=== PATIENT | male | born 2000 | race Caucasian/White ===

== ENCOUNTER 2019-12-25 22:05 | Emergency (ER) | payer OTHER ==
[2019-12-25] MEDS ORDERED: predniSONE 20 MG Tab PO ONE (23:48)
--- NOTE | 2019-12-25 23:52 | EDM.PDOC ---
ED HPI GENERAL MEDICAL PROBLEM - General Chief Complaint: Skin Complaint Stated Complaint: STUNG BY HORNET LOWER BACK Time Seen by Provider: 12/25/19 22:54 Source of Information: Reports: Patient History Limitations: Reports: No Limitations - History of Present Illness INITIAL COMMENTS - FREE TEXT/NARRATIVE: 19-year-old male with no past medical history presenting with a insect sting. Patient states that 2 days ago, he was stung on the left flank by a hornet. Since then, he has had a large area of erythema, tenderness, and itching and is concerned about possible expansion of the localized sting reaction. Denies any fever, chills, nausea, vomiting, throat swelling, tongue or facial swelling, wheezing, shortness of breath, or any other symptoms. Intermittently taking B enadryl prior to arrival. Past medical history: Reviewed, no additional pertinent history. Surgical history: Reviewed in system, no additional pertinent history. Social history: Reviewed in system, no additional pertinent history. Family history: Reviewed in system, no additional pertinent history. PHYSICAL EXAM Vital signs reviewed. Nursing notes reviewed. Constitutional: Awake, alert, non-distressed. Head: Normocephalic, atraumatic. Eyes: EOMI, conjunctiva normal, no discharge, no scleral icterus. Ears, Nose, Throat: External ears and nose normal, moist oral mucosa. Cardiovascular: 2+ radial pulse, capillary refill less than 2 seconds. Pulmonary: normal work of breathing, no accessory muscle use. Abdomen/GI: Soft, nontender, nondistended, no guarding or rigidity, no masses. Musculoskeletal: No deformities. Integumentary: Appropriate color for ethnicity, warm, dry, no pallor or jaundice, no rash. Left flank has a large area of erythema and central pallor which the patient identifies as the hornet sting site. Similar area noted over the left forearm. Neurologic: Alert, answering questions appropriately, normal speech, no facial droop, moving all extremities well. Psychiatric: Appropriate mood and affect, normal thought process. - Related Data Allergies Allergy/AdvReac Type Severity Reaction Status Date / Time No Known Allergies Allergy Verified 12/25/19 23:01 Home Meds: Home Meds predniSONE [Prednisone] 60 mg PO DAILY 4 Days #12 tablet 12/25/19 [Rx] Past Medical History - Past Health History Medical/Surgical History: Denies Medical/Surgical History Respiratory History: Reports: Other (See Below) Other Respiratory History: covid positve on 12/08/19 - Past Surgical History Respiratory Surgical History: Reports: None Social & Family History - Family History Family Medical History: Noncontributory - Tobacco Use Smoking Status *Q: Never Smoker Second Hand Smoke Exposure: No - Caffeine Use Caffeine Use: Reports: None - Recreational Drug Use Recreational Drug Use: No ED ROS GENERAL - Review of Systems Review Of Systems: See Below ED EXAM, SKIN/RASH Exam: See Below Course - Vital Signs Text/Narrative:: 19-year-old male with a localized reaction to an insect sting. No evidence of anaphylaxis. No evidence of cellulitis. We discussed the risks versus benefits of oral prednisone and the patient wants to be prescribed the steroid. Given a single dose here. We discussed treatment [id number] Zyrtec or Claritin and Benadryl as needed. No evidence of infection at this point. Stable to discharge home. Plan: Patient is stable to discharge home with outpatient primary care clinic follow-up. Strict emergency department return precautions were provided, mohamud grande indicated understanding. All questions were answered prior to departure. Discharged in good condition. Last Recorded V/S: Last Vital Signs Temp 36.8 C 12/26/19 00:07 Pulse 73 12/25/19 22:50 Resp 17 12/25/19 22:50 BP 152/86 H 12/25/19 22:50 Pulse Ox 97 12/25/19 22:50 - Orders/Labs/Meds Meds: Medications Discontinued Medications Generic Name Dose Route Start Last Admin Trade Name Mani PRN Reason Stop Dose Admin Prednisone 60 mg 12/25/19 23:48 12/26/19 00:06 Prednisone PO 12/25/19 23:49 60 mg ONETIME ONE Administration Departure - Departure Time of Disposition: 23:50 Disposition: Home, Self-Care 01 Condition: Good Clinical Impression: Insect sting Qualifiers: Encounter type: initial encounter Injury intent: undetermined intent Qualified Code(s): T63.484A - Toxic effect of venom of other arthropod, undetermined, initial encounter - Discharge Information *PRESCRIPTION DRUG MONITORING PROGRAM REVIEWED*: Not Applicable *COPY OF PRESCRIPTION DRUG MONITORING REPORT IN PATIENT MIMA: Not Applicable Prescriptions: predniSONE [Prednisone] 60 mg PO DAILY 4 Days #12 tablet Instructions: Insect Bite, Adult, [id number] Referrals: [facility] - Family Practice [Provider Group] - 1 Week (For follow-up as needed.) Forms: ED Department Discharge Additional Instructions: You were seen in the emergency department for insect stings. These should improve with time. We are going to prescribe you a short course of oral steroids called prednisone. He will be given the first dose here and can take the next 4 days at home. I recommend [id number] Zyrtec or Claritin once daily in the morning. He can also take [id number]-oriharn Benadryl every 6 hours as needed for persistent itching or swelling. Follow-up with the family medicine clinic in the next 1 to 2 weeks if your symptoms do not improve. Please return the emergency department immediately if your symptoms worsen or if you feel worse. Thank you for choosing the [facility] emergency department in [place] for your medical needs today. It was a pleasure caring for you. The following information is given to patients seen in the emergency department who are being discharged. This information is to outline your options for fo llow-up care. We provide all patients seen in our emergency department with a follow-up referral. The need for follow-up, as well as the timing and circumstances, are variable depending upon the specifics of your emergency department visit. If you don't have a primary care physician on staff, we will provide you with a referral. We always advise you to contact your personal physician following an emergency department visit to inform them of the circumstance of the visit and for follow-up with them and/or the need for any referrals to a consulting specialist. The emergency department will also refer you to a specialist when appropriate. This referral assures that you have the opportunity for follow-up care with a specialist. All of these measure are taken in an effort to provide you with optimal care, which includes your follow-up. Under all circumstances we always encourage you to contact your private physician who remains a resource for coordinating your care. When calling for follow-up care, please make the office aware that this follow-up is from your recent emergency room visit. If for any reason you are refused follow-up, please contact the [facility] Emergency Department at and asked to speak to the emergency department charge nurse. If you do not have a primary care physician that is caring for you, you can contact these clinics below to set up an appointment to establish care: [facility] - Primary Care [address] [place] [id number] [facility] [address] [place] [id number] Sepsis Event Note (ED) - Evaluation Sepsis Screening Result: No Definite Risk - Focused Exam Vital Signs: Vital Signs Temp Pulse Resp BP Pulse Ox 12/26/19 00:07 36.8 C 12/25/19 22:50 36.6 C 73 17 152/86 H 97
== END 2019-12-26 00:09 | disposition home or self-care (01) ==
LOC: MW.ED 22:05
DX: T63.451A Toxic effect of venom of hornets, accidental (unintentional), initial encounter (principal); U07.1 COVID-19
CPT/HCPCS: 99282; A9270

== ENCOUNTER 2020-09-22 05:00 | Emergency (ER) | payer OTHER ==
--- NOTE | 2020-09-22 05:03 | EDM.PDOC ---
ED HPI GENERAL MEDICAL PROBLEM - General Stated Complaint: WHEEZING, COUGHING Time Seen by Provider: 09/22/20 05:02 Source of Information: Reports: Patient History Limitations: Reports: No Limitations - History of Present Illness INITIAL COMMENTS - FREE TEXT/NARRATIVE: 19-year-old male no past medical history presents for wheezing, cough, chest tightness worsening over the last week. Patient does not have a history of asthma or reactive airway disease that he is aware of. He is a non-smoker. 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 He has been trying Claritin and Flonase which initially is providing some relief but does not seem to be working well anymore. This morning he had an intense fit of coughing that made him feel like he was about to pass out. Patient had COVID-19 roughly 5 months ago. He still has a sense of taste and smell. chest area Pain Score (Numeric/FACES): 4 - Related Data Allergies Allergy/AdvReac Type Severity Reaction Status Date / Time No Known Allergies Allergy Verified 09/22/20 05:10 Home Meds: Home Meds Albuterol Sulfate [Proair Hfa] 8.5 gm IH Q4H PRN #1 inhaler 09/22/20 [Rx] predniSONE 40 mg PO DAILY 4 Days #8 tab 09/22/20 [Rx] Past Medical History - Past Health History Medical/Surgical History: Denies Medical/Surgical History Respiratory History: Reports: Other (See Below) Other Respiratory History: covid positve on 12/08/19 - Past Surgical History Respiratory Surgical History: Reports: None Social & Family History - Family History Family Medical History: No Pertinent Family History - Caffeine Use Caffeine Use: Reports: None ED ROS GENERAL - Review of Systems Review Of Systems: Comprehensive ROS is negative, except as noted in HPI. ED EXAM, GENERAL - Physical Exam Exam: See Below Exam Limited By: No Limitations General Appearance: Alert, WD/WN, No Apparent Distress Nose: Normal Inspection Throat/Mouth: Normal Inspection, Normal Oropharynx, Normal Voice, No Airway Compromise Head: Atraumatic, Normocephalic Neck: Normal Inspection Respiratory/Chest: No Respiratory Distress, Wheezing Cardiovascular: Normal Peripheral Pulses, Regular Rate, Rhythm Extremities: Normal Inspection Neurological: Alert, Normal Cognition, Normal Gait Psychiatric: Normal Affect, Normal Mood Skin Exam: Warm, Dry, Intact, Normal Color #1 Interpretation EKG Date: 09/22/20 Time: 05:03 Rhythm: NSR Rate (Beats/Min): 74 [place]: Normal P-Wave: Present QRS: Normal ST-T: Normal QT: Normal NC/PQ Interval: 164 Comparison: NA - No Prior EKG EKG Interpretation Comments: normal EKG Course - Vital Signs Last Recorded V/S: Last Vital Signs Temp 97 F 09/22/20 05:00 Pulse 79 09/22/20 05:00 Resp 24 H 09/22/20 05:00 BP 139/93 H 09/22/20 05:00 Pulse Ox 95 09/22/20 05:00 - Orders/Labs/Meds Orders: Active Orders 24 hr Category Date Time Status RT Aerosol Therapy [RC] ASDIRECTED Care 09/22/20 05:13 Active Chest 1V Frontal [CR] Stat Exams 09/22/20 05:13 Taken Meds: Medications Discontinued Medications Generic Name Dose Route Start Last Admin Trade Name Freq PRN Reason Stop Dose Admin Albuterol/Ipratropium 3 ml 09/22/20 05:13 09/22/20 05:15 Albuterol/Ipratropium 3.0-0.5 Mg/3 Ml Neb Soln NEB 09/22/20 05:14 3 ml ONETIME ONE Administration Prednisone 40 mg 09/22/20 05:13 09/22/20 05:28 Prednisone 20 Mg Tab PO 09/22/20 05:14 40 mg STAT STA Administration - Re-Assessments/Exams Free Text/Narrative Re-Assessment/Exam: 09/22/20 05:16 Patient presents with wheezing and on physical exam has wheezing consistent with reactive airway disease. No history of asthma. Will get chest x-ray. Will give DuoNeb and prednisone now. 09/22/20 06:02 CXR unremarkable; will d/c with albuterol inhaler and prednisone. Departure - Departure Time of Disposition: 06:03 Disposition: Home, Self-Care 01 Condition: Good Clinical Impression: Reactive airway disease - Discharge Information Prescriptions: predniSONE 40 mg PO DAILY 4 Days #8 tab Instructions: Asthma, Adult Additional Instructions: Your chest x-ray does not show any sign of pneumonia. You had significant wheezing on exam. You were given a breathing treatment and a steroid in the emergency department. You were given a prescription for an inhaler as well as steroids for the next 4 days. Start the steroids tomorrow. The following information is given to patients seen in the emergency department who are being discharged to home. This information is to outline your options for follow-up care. We provide all patients seen in our emergency department with a follow-up referral. The need for follow-up, as well as the timing and circumstances, are variable depending upon the specifics of your emergency department visit. If you don't have a primary care physician on staff, we will provide you with a referral. We always advise you to contact your personal physician following an emergency department visit to inform them of the circumstance of the visit and for follow-up with them and/or the need for any referrals to a consulting specialist. The emergency department will also refer you to a specialist when appropriate. This referral assures that you have the opportunity for follow-up care with a specialist. All of these measure are taken in an effort to provide you with optimal care, which includes your follow-up. Under all circumstances we always encourage you to contact your private physician who remains a resource for coordinating your care. When calling for follow-up care, please make the office aware that this follow-up is from your recent emergency room visit. If for any reason you are refused follow-up, please contact the [facility] Emergency Department at and asked to speak to the emergency department charge nurse. Please follow up with your primary care physician. If you do not have a primary care physician, see below: [facility] [address] [place] [id number] [address] [facility] [address] [place] [address] [facility] [address] [place] [id number] Sepsis Event Note (ED) - Focused Exam Vital Signs: Vital Signs Temp Pulse Resp BP Pulse Ox 09/22/20 05:00 97 F 79 24 H 139/93 H 95 - My Orders Last 24 Hours: My Active Orders 09/22/20 05:13 RT Aerosol Therapy [RC] ASDIRECTED Chest 1V Frontal [CR] Stat - Assessment/Plan Last 24 Hours: My Active Orders 09/22/20 05:13 RT Aerosol Therapy [RC] ASDIRECTED Chest 1V Frontal [CR] Stat
[2020-09-22] MEDS ORDERED: Albuterol/Ipratropium 3.0-0.5 MG/3 ML Neb Soln NEB ONE (05:13)
[2020-09-22] MEDS ORDERED: predniSONE 20 MG Tab PO STA (05:13)
--- NOTE | 2020-09-22 06:13 | CR ---
INDICATION: Wheezing TECHNIQUE: Portable upright AP view of the chest COMPARISON: PA and lateral chest radiographs 12/22/2019 FINDINGS: The lungs are clear. There is no sizable pleural effusion or pneumothorax. The cardiomediastinal silhouette is normal. The visualized osseous structures are unremarkable. IMPRESSION: No acute intrathoracic process. Dictated by Mallory Alas MD @ 09/22/2020 6:11:[address] Mallory Alas @ Sep 22 2020 6:11AM
== END 2020-09-22 06:10 | disposition home or self-care (01) ==
LOC: MW.ED 05:00
DX: J45.909 Unspecified asthma, uncomplicated (principal); Z86.16 Personal history of COVID-19
CPT/HCPCS: 71045; 93005; 99285; A9270; 93010; 99283; J7620-GY